=== PATIENT | female | born 1995 | race Caucasian/White ===

== ENCOUNTER 2018-10-26 22:48 | Emergency (ER) | payer BC, SELFPAY ==
[2018-10-26 22:49] VITALS: BP 159/86; PULSE 114; RESP 18; TEMP 36.8; O2SAT 95; BMI 52.6
--- NOTE | 2018-10-26 23:03 | ED.DCSUM_ITS ---
History of Present Illness Chief Complaint: Nausea/Vomiting/Diarrhea Informant: Patient Narrative: Stated for the last 2 days she has had nausea vomiting and diarrhea. She said 4 episodes of emesis today. Multiple yesterday. No sick contacts bad food exposures or recent antibiotics. Today she had 3 loose diarrhea bowel movements. The last couple were dark in nature. This concerned her. She is not having any bright red blood. She is having no abdominal pain. She is also having a nonproductive mild cough for the last day or 2. No fevers or chills. Slight sinus congestion patient. No home treatment for this. She is drinking fluids. Past Medical History - Allergies and Home Meds Allergies/Adverse Reactions: Allergies No Known Allergies Allergy (Verified 10/26/18 22:51) Primary Care Physician: Meka Conn,Out of [Primary Care Provider] - Prior records reviewed: Yes Past Medical History: None Surgical History: no surgical history Smoking Status: Never smoker Alcohol: None Drugs: None Review of Systems General: Denies: Chills, Fever, Sweats Eyes: Denies: Visual changes - bilaterally, Diplopia ENT: Denies: Rhinorrhea, Sore throat Cardiovascular: Denies: Chest pain, Palpitations Respiratory: Reports: Cough. Denies: Dyspnea, Dyspnea on exertion Gastrointestinal: Reports: Nausea, Vomiting, Diarrhea. Denies: Abdominal pain, Melena, Hematochezia Genitourinary: Denies: Dysuria, Hematuria, Frequency Musculoskeletal: Denies: Back pain, Extremity Pain Skin: Denies: Rash, Wounds Neurological: Denies: Headache, Weakness, Numbness Physical Exam Vital Signs/Narrative: Vital Signs Temp Pulse Resp BP Pulse Ox 10/26/18 22:49 98.2 F 114 H 18 159/86 H 95 General: Well nourished, Well developed, No Acute Distress Head: Normocephalic, Atraumatic Eyes: Perrl, EOMI ENT: Moist mucous membranes, No rhinorrhea Neck: Supple, Nontender Cardiovascular: Regular rate, Regular rhythm, No murmurs Respiratory: No distress, CTA bilaterally, Chest nontender Abdomen: Soft, Nontender, Nondistended, Normal bowel sounds Back: Nontender, Normal Inspection Extremities: Nontender, No edema Skin: Normal color, No rash Neurological: Alert, Oriented x3, Cranial nerves II-XII grossly intact, Normal Strength, Normal Sensation Psychological: Normal affect, Normal Mood Diagnostic/Tx/Re-eval - Medical Decision Making This time I feel the patient likely has upper respiratory infection or viral illness is causing vomiting and diarrhea. I do not feel she has a bacterial cause of her symptoms. I think this is likely viral. Do not think she needs imaging or lab work. Patient wants to hold off on doing IV fluids. She was given oral Zofran and Imodium. She will continue these at home. She will also use Mucinex. She will follow-up as an outpatient. ED Disposition - Plan for ED Patient: Disposition: Home or Assisted Living Diagnosis: Nausea vomiting and diarrhea, Cough Instructions: DIET, Vomiting or Diarrhea [6yr-Adult] Prescriptions: Ondansetron [Zofran Odt] 4 mg PO Q8H PRN PRN #10 tab PRN Reason: Nausea Prescription Printed Referrals: [facility] Doctor,Out of [Primary Care Provider] -
[2018-10-26] MEDS: Loperamide 2 MG Capsule 4 MG PO (23:06)
[2018-10-26] MEDS: Ondansetron ODT 4 MG Tablet 8 MG PO (23:06)
[2018-10-26 23:11] VITALS: BP 113/71; PULSE 104; RESP 17; O2SAT 99
== END 2018-10-26 23:14 | disposition home or self-care (01) ==
LOC: ED 23:13
PROVIDERS: Emergency Provider Emergency Medicine
DX: R11.2 Nausea with vomiting, unspecified (principal); R19.7 Diarrhea, unspecified; R05 Cough
CPT/HCPCS: 99283